=== PATIENT | female | born 1970 | race Caucasian/White ===

== ENCOUNTER 2016-08-17 11:03 | Emergency (ER) | payer MEDICAID ==
[2016-08-17 11:12] VITALS: TEMP 98.4
--- NOTE | 2016-08-17 11:39 | EDPHY ---
H & P Stated Complaint: Ruptured Left Ear Drum Time Seen by Provider: 08/17/16 11:12 HPI/ROS: CHIEF COMPLAINT: left ear bleeding HISTORY OF PRESENT ILLNESS: A 45-year-old female presents emergency department complaining of bleeding from her left ear. Patient states 2 days ago she was cleaning her ear with a Q-tip and is worried she ruptured her eardrum as it started bleeding. Patient reports she feels a fullness in her ear, intermittent dizziness and pressure. No fevers or chills, no nausea or vomiting. Patient reports frequent ear infections. Source: Patient Exam Limitations: No limitations - Personal History Current Tetanus/Diphtheria Vaccine: Yes Current Tetanus Diphtheria and Acellular Pertussis (TDAP): Yes - Medical/Surgical History Hx Asthma: No Hx Chronic Respiratory Disease: No Hx Diabetes: No Hx Cardiac Disease: No Hx Renal Disease: No Hx Cirrhosis: No Hx Alcoholism: No Hx HIV/AIDS: No Hx Splenectomy or Spleen Trauma: No Other PMH: anxiety, laser endometriosis surgery, uterine fibroids, ovarian cyst - Social History Smoking Status: Never smoked - Physical Exam Exam: General: Alert, nontoxic. ENT: Tympanic membranes clear, left external auditory canal with small superficial abrasion in external auditory canal, with small amount of dried blood in canal, external ear and surrounding soft tissue including over the mastoid unremarkable. Nasopharynx is not injected, there is no rhinorrhea. Oropharynx without erythema or edema. There is no exudate. No tonsillar hypertrophy. No asymmetry. The uvula is midline. No elevation of tongue. There is no hoarseness. No drooling, patient has good control of their oral secretions. No trismus. No stridor. Cardiac: Regular rate and rhythm. Respiratory: Lungs clear to auscultation bilaterally. Neurological: no meningismus. Skin: No rashes. Constitutional: Initial Vital Signs Temperature (C) 36.9 C 08/17/16 11:10 Heart Rate 93 08/17/16 11:10 Respiratory Rate 14 08/17/16 11:10 Blood Pressure 124/80 H 08/17/16 11:10 O2 Sat (%) 94 08/17/16 11:10 O2 Delivery Mode Room Air Allergies/Adverse Reactions: Penicillins Allergy (Verified 08/17/16 11:10) Home Medications: Medication Instructions Recorded FLUoxetine [Prozac] 5 mg PO DAILY 11/27/13 Departure - Departure Disposition: Home, Routine, Self-Care Clinical Impression: Ear canal abrasion Qualifiers: Encounter type: initial encounter Laterality: left Qualified Code(s): S00.412A - Abrasion of left ear, initial encounter Condition: Good Instructions: Abrasion (ED) Additional Instructions: Return to the emergency department for any fevers, worsening symptoms, new symptoms or concerns. Referrals: [facility] [Other] - As per Instructions
[2016-08-17 12:29] VITALS: BP 130/89; PULSE 88; RESP 16; O2SAT 96
== END 2016-08-17 12:28 | disposition home or self-care (01) ==
DX: S00.412A Abrasion of left ear, initial encounter (principal); X58.XXXA Exposure to other specified factors, initial encounter

== ENCOUNTER 2016-12-31 15:49 | Emergency (ER) | payer MEDICAID ==
[2016-12-31 16:28] VITALS: BP 126/85; PULSE 77; TEMP 98.4
--- NOTE | 2016-12-31 16:52 | EDPHY ---
H & P Time Seen by Provider: 12/31/16 16:23 HPI/ROS: HPI Lower back pain. 46-year-old female by private vehicle. She has a long history of chronic lower back pain and exacerbations of this pain. She reports that she has had this ongoing for 10-15 years. She reports that she has been under a lot of stress lately. She reports that she woke up with her typical of right-sided lower back pain this morning. She is asking for pain medication to help treat this. She reports that she took ibuprofen 600 mg earlier this morning and this did not help her. She has also tried tramadol and this is not work for her as well. She does not want to take Toradol. She denies any loss of sensation or weakness in her lower extremities. No fever. She has no history of malignancy. No history of IV drug abuse. No bowel or bladder incontinence. Denies any abdominal pain. No other complaints. ROS: Constitutional: No fever, no chills. No weakness. Gastrointestinal: No abdominal pain, no vomiting, no diarrhea. Genitourinary: No hematuria. No dysuria or increased frequency with urination. Musculoskeletal: As above. No neck pain. No myalgias or arthralgias. Skin: No rashes. Neurological: No focal weakness or altered sensation. Past medical history: Anxiety, endometriosis, ovarian cysts, uterine fibroids. Social history: Non smoker. Lives with her boyfriend. Denies alcohol. Physical Exam: General Appearance: Alert, no distress. This patient is responding to questions appropriately and in full sentences. This patient appears well- hydrated and well-nourished. Back exam: No midline thoracic, lumbar, sacral tenderness on palpation. She has some vague and mild tenderness on palpation over the right upper sacroiliac area paraspinal area adjacent to L3-L4. No soft tissue changes, specifically no erythema, no warmth, no ecchymosis, no edema. She has a negative same side and cross-eyed straight leg raise test. She has a normal gait. She is neurologically intact in all myotomes in dermatomes of the bilateral lower extremities. Gastrointestinal: Abdomen is soft and nontender, no masses, bowel sounds normal. No focal tenderness at McBurney's point. No Dias sign. Neurological: Motor sensory function is grossly intact. Cranial nerves are normal. Gait is normal. Skin: Warm and dry, no rashes. Musculoskeletal: Neck is supple and nontender. Extremities are symmetrical. All joints range without pain or impingement. Psychiatric: No agitation. No depression. Database: EKG: Imaging: Procedures: Emergency department course: Patient presents with exacerbation of typical lower back pain which she has been experiencing for 10-15 years. She declines intramuscular Toradol. She reports she has had Flexeril no past this has not helped her. She is asking for a limited prescription for Vicodin. Plan will be to refer her to rhonda Hancock for further evaluation and management. She feels comfortable going home. Follow-up and return to emergency department precautions reviewed with her. All of her questions were answered. She was discharged home in good condition. Differential Diagnosis: The differential diagnosis on this patient includes but is not limited to right sacroiliac strain, chronic lower back pain. Epidural compression syndrome, epidural abscess, cauda equina syndrome, acute radiculopathy, fracture, subluxation, dislocation of the lumbar sacral spine, diskitis, transverse myelitis unlikely. This represents a partial list of diagnoses considered. These considerations are based on history, physical exam, past history, reassessment and diagnostic testing. Smoking Status: Never smoked Constitutional: Initial Vital Signs Temperature (C) 36.9 C 12/31/16 15:59 Heart Rate 77 12/31/16 15:59 Respiratory Rate 16 12/31/16 15:59 Blood Pressure 126/85 H 12/31/16 15:59 O2 Sat (%) 96 12/31/16 15:59 O2 Delivery Mode Room Air Allergies/Adverse Reactions: Penicillins Allergy (Verified 08/17/16 11:10) Home Medications: Medication Instructions Recorded Hydrocodone/APAP 5/325 [Odin 1 - 2 tab PO Q4-6PRN PRN #8 tab 12/31/16 5/325 (*)] traMADol 12/31/16 Departure - Departure Disposition: Home, Routine, Self-Care Clinical Impression: Lower back pain Condition: Good Instructions: Chronic Back Pain (ED), Lower Back Exercises (ED) Additional Instructions: Read and follow provided instructions. Follow-up with Rhonda Hancock as discussed for re-evaluation and further management of your ongoing lower back pain in the next 2-3 days. Call her office for appointment time tomorrow morning. Explained this is for an emergency department follow-up. Take medication as prescribed. Odin/Percocet dosin-2 every 4-[address] not drive on this medication. You can get Lidocaine patches over the counter. Return to the emergency department for worsening pain, fever, bowel or bladder incontinence, loss of sensation or weakness in lower extremities or other serious concerns. Referrals: [facility] [Other] - As per Instructions [facility] [Outside] - As per Instructions Prescriptions: Hydrocodone/APAP 5/325 [Odin 5/325 (*)] 1 - 2 tab PO Q4-6PRN PRN #8 tab PRN Reason: Pain, Moderate
[2016-12-31 17:07] VITALS: RESP 18; O2SAT 95
== END 2016-12-31 17:06 | disposition home or self-care (01) ==
DX: M54.5 Low back pain (principal)

== ENCOUNTER 2018-01-15 15:09 | Emergency (ER) | payer MEDICAID ==
--- NOTE | 2018-01-15 16:17 | EDPHY ---
H & P Stated Complaint: LLQ pain Time Seen by Provider: 01/15/18 15:58 - Personal History LMP (Females 10-55): Post Menopausal Current Tetanus/Diphtheria Vaccine: Yes - Medical/Surgical History Hx Asthma: No Hx Chronic Respiratory Disease: No Hx Diabetes: No Hx Cardiac Disease: No Hx Renal Disease: No Hx Cirrhosis: No Hx Alcoholism: No Hx HIV/AIDS: No Hx Splenectomy or Spleen Trauma: No Other PMH: anxiety, laser endometriosis surgery, uterine fibroids, ovarian cyst - Social History Smoking Status: Former smoker Constitutional: Initial Vital Signs Temperature (C) 36.9 C 01/15/18 15:24 Heart Rate 90 01/15/18 15:24 Respiratory Rate 19 01/15/18 15:24 Blood Pressure 123/75 H 01/15/18 15:24 O2 Sat (%) 96 01/15/18 15:24 O2 Delivery Mode Room Air Allergies/Adverse Reactions: Penicillins Allergy (Mild, Verified 01/15/18 15:27) Home Medications: Medication Instructions Recorded NK [No Known Home Meds] 01/15/18 Medical Decision Making - Diagnostics Imaging Results: Imaging Impressions Pelvic/Renal Ultrasound 01/15/18 16:23 Impression: 1. Uterine leiomyomata. 2. Normal appearance to the ovaries, with no suspicious adnexal mass or torsion. Findings were discussed with ROBERTO Zarate in the ED who will convey the information to Dexter Tena MD at 17:25, on 01/15/2018. Abdomen CT 01/15/18 17:37 Impression: 1. Constipation. 2. Additional findings, as above. Findings discussed with Dexter Tena M.D., on January 15, 2018 at 1821. Imaging: Discussed imaging studies w/ envelope sealer operator Radiologist ED Course/Re-evaluation: CHIEF COMPLAINT: Bloating, LLQ pain HISTORY OF PRESENT ILLNESS: This patient is a 47 year old female with history of endometriosis and ovarian cysts complaining of abdominal pain and bloating onset today. She has is concerned regarding the possibility of a burst ovarian cyst. Her pain is sharp and is primarily in the lower left quadrant. It is between 5 - 7/10 severity. She feels quite bloated, which is abnormal for her. She denies fever, nausea, vomiting, or diarrhea. No melena or hematochezia. No recent trauma or illness. REVIEW OF SYSTEMS: A comprehensive 10 system review of systems is otherwise negative aside from elements mentioned in the history of present illness and medical decision making. PHYSICAL EXAM: HR, BP, O2 Sat, RR. Temp noted General Appearance: Alert, well hydrated, appropriate, and non-toxic appearing. Head: Atraumatic without scalp tenderness or obvious injury Eyes: Pupils equal, round, reactive to light and accommodation, EOMI, no trauma , no injection. Ears: Clear bilaterally, no perforation, normal landmarks Nose: Atraumatic, no rhinorrhea, clear. Throat: There is no erythema or exudates, no lesions, normal tonsils, mucus membranes moist. Neck: Supple, 2+ carotid upstroke, nontender, no lymphadenopathy. Respiratory: No retractions, no distress, no wheezes, and no accessory muscle use. Lungs are clear to auscultation bilaterally. Cardiovascular: Regular rate and rhythm, no murmurs, rubs, or gallops. Bilateral carotid, radial, dorsalis pedis, and posterior tibial pulses intact. Good capillary refill all extremities. Gastrointestinal: Abdomen bloated, LLQ tenderness. Abdomen is soft, no masses, no rebound, no guarding, no peritoneal signs. Musculoskeletal: Normal active ROM of all extremities, atraumatic. Neurological: Alert, appropriate, and interactive. Nonfocal neuro exam. Skin: No rashes, good turgor, no nodules on palpation. Past medical history: Anxiety, uterine fibroids, ovarian cyst. Past surgical history: Laser endometriosis surgery. Family history: Noncontributory Social history: Lives in [place]. Single. Employed. DIFFERENTIAL DIAGNOSIS: The differential diagnosis for the patient's abdominal pain included but was not limited to ovarian cyst, pelvic inflammatory disease, ovarian torsion, urinary tract infection, ectopic , cholecystitis, and appendicitis. MEDICAL DECISION [id number] y/o female presents with abdominal bloating and LLQ tenderness. Plan for US abdomen/pelvis. 17:25 US shows uterine fibroids. Normal appearance to the ovaries, with no suspicious adnexal mass or torsion. 17:33 Reassessed. Discussed imaging results. US shows uterine fibroid, but this is likely not causing her bloating. She complains of acute pain in her lower left quadrant currently. Plan for CT for further evaluation. Patient is concerned and does not feel in great health. She has tried diet and herbal remedies without relief. 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 Plan for CT abdomen/pelvis with contrast. 18:[address] Pickard, radiologist. CT negative for acute processes. Constipation noted. Reassessed patient. Discussed imaging results. PLan to discharge home in good condition. Follow up and return precautions discussed. She will try OTC remedies for constipation. She is comfortable with this plan. - Data Points Laboratory Results: Laboratory Results 01/15/18 16:05 01/15/18 16:05 01/15/18 01/15/18 01/15/18 16:05 16:05 16:05 WBC 6.51 10^3/uL 10^3/uL (3.80-9.50) RBC 4.39 10^6/uL 10^6/uL (4.18-5.33) Hgb 13.5 g/dL g/dL (12.6-16.3) Hct 38.4 % % (38.0-47.0) MCV 87.5 fL fL (81.5-99.8) MCH 30.8 pg pg (27.9-34.1) MCHC 35.2 g/dL g/dL (32.4-36.7) RDW 12.0 % % (11.5-15.2) Plt Count 220 10^3/uL 10^3/uL (150-400) MPV 9.9 fL fL (8.7-11.7) Neut % (Auto) 58.9 % % (39.3-74.2) Lymph % (Auto) 29.6 % % (15.0-45.0) [place] % (Auto) 8.6 % % (4.5-13.0) Eos % (Auto) 1.8 % % (0.6-7.6) Baso % (Auto) 0.9 % % (0.3-1.7) Nucleat RBC Rel Count 0.0 % % (0.0-0.2) Absolute Neuts (auto) 3.83 10^3/uL 10^3/uL (1.70-6.50) Absolute Lymphs (auto) 1.93 10^3/uL 10^3/uL (1.00-3.00) Absolute Monos (auto) 0.56 10^3/uL 10^3/uL (0.30-0.80) Absolute Eos (auto) 0.12 10^3/uL 10^3/uL (0.03-0.40) Absolute Basos (auto) 0.06 10^3/uL 10^3/uL (0.02-0.10) Absolute Nucleated RBC 0.00 10^3/uL 10^3/uL (0-0.01) Immature Gran % 0.2 % % (0.0-1.1) Immature Gran # 0.01 10^3/uL 10^3/uL (0.00-0.10) Sodium 139 mEq/L mEq/L (135-145) Potassium 3.9 mEq/L mEq/L (3.3-5.0) Chloride 103 mEq/L mEq/L (97-110) Carbon Dioxide 25 mEq/l mEq/l (22-31) Anion Gap 11 mEq/L mEq/L (8-16) BUN 19 mg/dL mg/dL (7-23) Creatinine 0.7 mg/dL mg/dL (0.6-1.0) Estimated GFR > 60 Glucose 91 mg/dL mg/dL (70-100) Calcium 9.5 mg/dL mg/dL (8.5-10.4) Total Bilirubin 0.5 mg/dL mg/dL (0.1-1.4) Conjugated Bilirubin 0.1 mg/dL mg/dL (0.0-0.5) Unconjugated Bilirubin 0.4 mg/dL mg/dL (0.0-1.1) AST 31 IU/L IU/L (14-46) ALT 27 IU/L IU/L (9-52) Alkaline Phosphatase 71 IU/L IU/L (38-126) Total Protein 7.6 g/dL g/dL (6.3-8.2) Albumin 4.6 g/dL g/dL (3.5-5.0) Lipase 93 IU/L IU/L (23-300) Beta HCG, Qual Urine Color PALE YELLOW Urine Appearance CLEAR Urine pH 5.0 (5.0-7.5) Ur Specific [place] 1.004 (1.002-1.030) Urine Protein NEGATIVE (NEGATIVE) Urine Ketones NEGATIVE (NEGATIVE) Urine Blood NEGATIVE (NEGATIVE) Urine Nitrate NEGATIVE (NEGATIVE) Urine Bilirubin NEGATIVE (NEGATIVE) Urine Urobilinogen NEGATIVE EU EU (0.2-1.0) Ur Leukocyte Esterase NEGATIVE (NEGATIVE) Urine Glucose NEGATIVE (NEGATIVE) 01/15/18 14:26 WBC RBC Hgb Hct MCV MCH MCHC RDW Plt Count MPV Neut % (Auto) Lymph % (Auto) [place] % (Auto) Eos % (Auto) Baso % (Auto) Nucleat RBC Rel Count Absolute Neuts (auto) Absolute Lymphs (auto) Absolute Monos (auto) Absolute Eos (auto) Absolute Basos (auto) Absolute Nucleated RBC Immature Gran % Immature Gran # Sodium Potassium Chloride Carbon Dioxide Anion Gap BUN Creatinine Estimated GFR Glucose Calcium Total Bilirubin Conjugated Bilirubin Unconjugated Bilirubin AST ALT Alkaline Phosphatase Total Protein Albumin Lipase Beta HCG, Qual NEGATIVE Urine Color Urine Appearance Urine pH Ur Specific [place] Urine Protein Urine Ketones Urine Blood Urine Nitrate Urine Bilirubin Urine Urobilinogen Ur Leukocyte Esterase Urine Glucose Medications Given: Discontinued Medications Sodium Chloride (Ns) 1,000 mls @ 0 mls/hr IV ONCE ONE PRN Reason: Wide Open Stop: 01/15/18 16:37 Last Admin: 01/15/18 16:49 Dose: 1,000 mls Departure - Departure Disposition: Home, Routine, Self-Care Clinical Impression: Constipation Qualifiers: Constipation type: unspecified constipation type Qualified Code(s): K59.00 - Constipation, unspecified Condition: Good Instructions: Constipation (ED), High Fiber Diet (ED) Additional Instructions: 1. Follow up with your primary care provider for symptoms unresolved. 2. You may try [id number] medications for relief of constipation if you wish, as directed on the packaging. 3. Return to the emergency department for severe pain, fever, uncontrollable vomiting or diarrhea, blood in your stool, or other worsening of condition. Referrals: Rosalia Franco MD [[facility] Primary Care Provider] - As per Instructions Report Scribed for: Dexter Tena Report Scribed by: Destiny Bateman Date of Report: 01/15/18 Time of Report: 18:47
[2018-01-15 16:18] LABS: PLATELET COUNT 220 10^3/uL (150-400)
[2018-01-15] MEDS ORDERED: NS 1,000 ML IV ONE (16:36)
[2018-01-15] MEDS ORDERED: IOPAMIDOL (ISOVUE-300) 100 ML BTL ONE (17:40)
[2018-01-15 19:01] VITALS: BP 118/77
== END 2018-01-15 19:02 | disposition home or self-care (01) ==
DX: K59.00 Constipation, unspecified (principal); D25.9 Leiomyoma of uterus, unspecified; Z87.42 Personal history of other diseases of the female genital tract; Z87.891 Personal history of nicotine dependence
CPT/HCPCS: Q9967